=== PATIENT | female | born 2005 | race Caucasian/White ===

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

== ENCOUNTER 2023-01-06 09:02 | Outpatient (CLI) | payer OTHER, SELFPAY ==
[2023-01-08 21:47] LABS: Calculi Mass 12 mg
== END 2023-01-06 09:03 | disposition home or self-care (01) ==
LOC: NFLDREF 09:02
PROVIDERS: PCP Internal Medicine; Visit Provider Internal Medicine
DX: Z87.442 Personal history of urinary calculi (principal)
CPT/HCPCS: 82365

== ENCOUNTER 2024-05-26 09:22 | Outpatient (CLI) | payer OTHER, SELFPAY ==
[2024-05-26 12:18] LABS: Chlamydia DNA Amplified* NOT DETECTED (No Detected); GC DNA Amplified* NOT DETECTED (No Detected)
== END 2024-05-26 09:23 | disposition home or self-care (01) ==
PROVIDERS: PCP Internal Medicine; Visit Provider Registered Nurse
DX: Z11.3 Encounter for screening for infections with a predominantly sexual mode of transmission (principal)
CPT/HCPCS: 87491; 87591